=== PATIENT | male | born 1990 ===

== ENCOUNTER 2023-09-10 16:34 | Emergency (ER) | payer OTHER, SELFPAY ==
[2023-09-10] VITALS (9 sets, daily range): BP systolic 124–146; BP diastolic 81–89; PULSE 73–90; RESP 18; TEMP 36.7; O2SAT 95–99; BMI 25.1
--- NOTE | 2023-09-10 17:21 | ED_ITS ---
HPI - Chest Pain General Time Seen by Provider: 17:21 Date Seen: 09/10/23 Chief Complaint: Chest Pain Stated Complaint: PAin and discomfort in heart area Time Seen by Provider: 09/10/23 17:20 Source: patient and RN notes reviewed Mode of arrival: ambulatory Limitations: no limitations History of Present Illness HPI narrative: This 33-year-old male is coming in with chest discomfort. It started about 330 p.m. today, was just walking out of his house. He states it is not really a pain, more of a discomfort. It will be associated with lightheadedness, sense of maybe shortness of breath but not pleuritic pain with breathing. He admits that he has had spells like this for couple years now. He did talk to his primary provider about this once, did reportedly get a stress test of some sort in the past. He is not aware of any elevated cholesterol or hypertension diagnosis. He does admit he does not go to the doctor often. There are 2 grandparents who had heart attacks, both of his grandfathers. He had influenza a couple weeks ago but feels he has recovered. He has had spells of this nature but did not last as long. He reports it is just low level discomfort and has been there since about 330. No associated GI symptoms. He is never had a cardiopulmonary chronic medical illness prior. He states he is not really aware that anything will make it worse or better when he has the symptoms. He notes no swallowing difficulties ever. MD complaint: chest discomfort Prior episodes: Yes Related Data Home Medications Medication Instructions Recorded Confirmed No Known Home Medications 09/10/23 09/10/23 Allergies Allergy/AdvReac Type Severity Reaction Status Date / Time Sulfa (Sulfonamide Allergy Verified 09/10/23 16:48 Antibiotics) Review of Systems Status of ROS Reports: 6 or more systems reviewed and unremarkable except as noted in History and below [facility] Social History Smoking Status: Never smoker How often do you have a drink containing alcohol: 4 or more times a week AUDIT-C Alcohol total score: 4 Non-prescribed substance use: denies use Exam Const Vital Signs, click to edit/add: Vital Signs - 24 hr 09/10/23 17:29 09/10/23 17:33 09/10/23 18:00 Pulse Rate 76 79 Blood Pressure Pulse Oximetry 96 96 98 09/10/23 18:02 09/10/23 18:30 09/10/23 18:32 Pulse Rate 80 75 73 Blood Pressure 126/84 124/81 Pulse Oximetry 98 98 98 33-year-old male is alert, interactive, no apparent distress. Pupils equal round reactive, sclera clear, conjugate gaze come symmetrical facial function. Speech is normal, able speak in complete sentences. Neck is supple, no adenopathy or masses, no thyromegaly masses or nodules. Lungs are clear, good air entry, no wheezing or crackles. CV regular rate and rhythm, no murmur, normal S1-S2, no S3-S4. No reproducible palpable chest wall tenderness. Abdomen is soft, nontender, nondistended, no organomegaly. He has no lower extremity edema, was ambulatory into the ED of his own accord. Documenting provider has reviewed patient's vital signs: yes Course Course ED Course: This is a 33-year-old gentleman presenting with chest discomfort, episodic. Has had what sounds to be some prior workup but I do not have access to those records. He will be monitored on pulse oximetry and cardiac monitoring, will get a portable chest x-ray. He will have serial EKGs. Will get troponin now in reviewed with him likely another troponin 90 minutes from the 1 which will be certainly beyond a 3 hour interval since the start of his symptoms. His symptoms are mild, been present for about 2 years intermittently which makes the likelihood of significant cardiovascular disease much less likely. He could have cardiothoracic issues, respiratory issues, referred GI issues. We have discussed that we will be doing a screening D-dimer, he understands if this is elevated then we will be proceeding with chest CT PE protocol. Reevaluation(s) Time of Reevaluation #1: 18:56 Reevaluation #1: Patient continues to just feel some slight symptoms, reviewed normal labs thus far. He understands that the D-dimer still pending, expect that to be back at any minute. If it is negative, no further chest imaging but if positive he will get a chest CT PE protocol. He will be having a follow-up troponin and EKG at 7:00 p.m.. If these are normal, discharge to home. We did discuss that with the negative enzymes and stable EKGs, he can be reassured that he is not having an active heart attack, no significant ischemia, nothing likely like myocarditis. We did review though that this does not completely rule out underlying heart disease. He has another family member with him, asked about panic attacks. Reviewed with them that I do not think he is having a panic attack but certainly may be suffering from some underlying stress or anxiety. We discussed there is a multitude of things that can be wrong that can cause sym ptoms of this nature but the fact that he has had recurrent symptoms for 2 years would make it less likely that it is something life-threatening. Vital Signs Vital signs: Initial Vital Signs Temperature 98.0 F 09/10/23 16:46 Temperature Source Temporal Artery Scan 09/10/23 16:46 Pulse Rate 89 09/10/23 16:46 Respiratory Rate 18 09/10/23 16:46 Blood Pressure 146/86 H 09/10/23 16:46 Blood Pressure Mean 106 H 09/10/23 16:46 Pulse Oximetry 99 09/10/23 16:46 Oxygen Delivery Method Room Air 09/10/23 16:46 Vital Signs Temperature 98.0 F 09/10/23 16:46 Pulse Rate 89 09/10/23 16:46 Respiratory Rate 18 09/10/23 16:46 Blood Pressure 146/86 H 09/10/23 16:46 Pulse Oximetry 99 09/10/23 16:46 Oxygen Delivery Method Room Air 09/10/23 16:46 Temperature 98.0 F 09/10/23 16:46 Pulse Rate 73 09/10/23 18:32 Respiratory Rate 18 09/10/23 16:46 Blood Pressure 124/81 09/10/23 18:32 Pulse Oximetry 98 09/10/23 18:32 Oxygen Delivery Method Room Air 09/10/23 16:46 MDM - Chest Pain Lab Data Attestation: I reviewed the patient's lab results. Labs: Lab Results 09/10/23 09/10/23 Range/Units 17:38 19:30 WBC 4.08 L (4.50-11.00) K/uL RBC 4.60 (4.30-5.90) m/uL Hgb 14.5 (13.5-17.5) gm/dL Hct 41.7 (37.0-53.0) % MCV 91 (80-100) fL MCH 32 (26-34) pg MCHC 35 (32-36) gm/dL RDW Coeff of Celia 11.7 (11.5-15.5) % Plt Count 213 (140-440) K/uL Neut % (Auto) 40.4 L (42.0-72.0) % Lymph % (Auto) 46.3 H (20-44) % Navarro % (Auto) 5.9 (0.0-11.0) % Eos % (Auto) 6.4 (0.0-7.0) % Baso % (Auto) 1.0 (0.0-3.0) % Neut # (Auto) 1.60 L (1.7-7.0) K/uL Lymph # (Auto) 1.90 (0.90-2.90) K/uL Navarro # (Auto) 0.20 (0.00-0.90) K/UL Eos # (Auto) 0.30 (0.00-0.50) K/uL Baso # (Auto) 0.00 (0.00-0.30) K/uL Abs Immat Gran (auto) 0.00 (0.00-0.30) K/uL Imm/Tot Granulo (auto) 0.0 % D-Dimer Quant (PE/DVT) < 0.27 (0.00-0.50) ug/ml VBG pH 7.386 (7.32-7.43) VBG pCO2 47 (40-50) mmHG VBG pO2 31.4 (25-47) mmHG VBG HCO3 28 (21-28) mmol/L Sodium 140 (135-149) mmol/L Potassium 3.7 (3.6-5.1) mmol/L Chloride 104 (96-114) mmol/L Carbon Dioxide 27 (20-32) mmol/L Anion Gap 9 (7-15) mEq/L BUN 14 (5-24) mg/dL Creatinine 0.9 (0.5-1.5) mg/dL Estimated Creat Clear 129.33 Estimated GFR 116 ml/min Glucose 96 (60-115) mg/dL Lactate 1.0 (0.5-1.9) mmol/L Calcium 9.7 (8.4-10.6) mg/dL Total Bilirubin 1.5 (0.1-1.5) mg/dL AST 34 (12-35) U/L ALT 28 (4-50) U/L Alkaline Phosphatase 65 (40-150) U/L Troponin I < 0.01 L (0.01-0.04) ng/mL C-Reactive Protein < 0.5 L (0.5-1.0) mg/dL NT-Pro-B Natriuret Pep 28 pg/mL Total Protein 7.8 (6.0-8.3) g/dL Albumin 4.9 (3.3-5.0) g/dL Lipase 51 (23-300) U/L POC Troponin I 0.00 L 0.00 L (0.01-0.04) ng/ml Imaging Data Chest x-ray: Attestation: I have reviewed the pertinent imaging results. Radiologist's impression: Patient: MAXIME HAYWOOD Facility:?[facility] Patient ID:?[id number] Site Patient ID:?[id number]. Site :?1990 Study:?XRay Chest 1V PORTABLE-09/10/2023 5:42:35 PM Ordering Physician:LUCY Final Report: INDICATION: Dyspnea. TECHNIQUE: Chest radiographs, 2 views. COMPARISON: None. FINDINGS: Cardiovascular/Mediastinum: Normal heart size. Unremarkable. Lungs: No focal consolidation. Airways: Trachea remains midline. Pleura: No pleural effusions or pneumothorax. Bones: No acute osseous abnormalities. Mild degenerative changes of the acromioclavicular joints. Upper abdomen: Unremarkable. IMPRESSION: No acute cardiopulmonary process. Dictated by Alberto Larose MD @ 09/10/2023 6:07:09 PM (Electronic Signature) ECG Data Attestation: I personally reviewed and interpreted this ECG as follows: (Normal sinus rhythm with sinus arrhythmia, 83 beats per minute. I see no definitive concerning change for ischemia or infarct. QT corrected 434 milliseconds.) ECG interpretation date: 09/10/23 ECG interpretation time: 17:41 Interpretation: Followup EKG timed 7:02 p.m. shows sinus rhythm, 70 beats per minute, no acute ischemia or infarct. QT corrected 423 milliseconds. No significant change. Critical Care Time Critical Care Time Critical Care Time: No Discharge Plan Discharge Clinical Impression: Chest pain Patient Disposition: Home, Self-Care Condition: Stable Instructions: Chest Pain (ED), Noncardiac Chest Pain (ED) Additional Instructions: Do recommend following up in clinic, need to get scheduled with her primary care physician. Can consider seen Dr. Borrero in clinic. Would discuss consideration for further stress testing in further workup of your chest symptoms. Certainly can try Tylenol ibuprofen, [id number] medicines to see if anything alleviates your symptoms. That any point you have worsening chest symptoms, feel that your symptoms are escalating, would recommend re- evaluation. Activity Level: Activity as Tolerated Prescriptions: No Action No Known Home Medications Follow Up/Referrals: Provider,Not a Local [Primary Care Provider] - Stand Alone Forms: [employer]ger[employer] Info Instructions
--- NOTE | 2023-09-10 17:29 | XR_ITS ---
Patient: MAXIME HAYWOOD Facility:?[facility] Patient ID:?[id number] Site Patient ID:?[id number]. Site :?1990 Study:?XRay-Chest 1V PORTABLE-09/10/2023 5:42:35 PM Ordering Physician:LUCY Final Report: INDICATION: Dyspnea. TECHNIQUE: Chest radiographs, 2 views. COMPARISON: None. FINDINGS: Cardiovascular/Mediastinum: Normal heart size. Unremarkable. Lungs: No focal consolidation. Airways: Trachea remains midline. Pleura: No pleural effusions or pneumothorax. Bones: No acute osseous abnormalities. Mild degenerative changes of the acromioclavicular joints. Upper abdomen: Unremarkable. IMPRESSION: No acute cardiopulmonary process. Dictated by Alberto Larose MD @ 09/10/2023 6:07:09 PM Signed by:?Alberto Larose MD @09/10/2023 6:07:09 PM (Electronic Signature)
[2023-09-10 17:44] LABS: HCO3 VBG 28 mmol/L (21-28); PCO2 VBG 47 mmHG (40-50); PO2 VBG 31.4 mmHG (25-47); pH VBG 7.386 (7.32-7.43)
[2023-09-10 17:47] LABS: Eosinophils Percent Auto 6.4 % (0.0-7.0); Hematocrit 41.7 % (37.0-53.0); Hemoglobin* 14.5 gm/dL (13.5-17.5); Lymphocytes Percent Auto 46.3 % (20-44); Mean Corpuscular HGB Conc 35 gm/dL (32-36); Mean Corpuscular Hemoglobin 32 pg (26-34); Mean Corpuscular Volume 91 fL (80-100); Monocytes Percent Auto 5.9 % (0.0-11.0); Neutrophils Percent Auto 40.4 % (42.0-72.0); Platelet Count* 213 K/uL (140-440); RDW Coefficient of Variation % 11.7 % (11.5-15.5); White Blood Count* 4.08 K/uL (4.50-11.00)
[2023-09-10 17:59] LABS: Albumin* 4.9 g/dL (3.3-5.0); Chloride* 104 mmol/L (96-114); Sodium* 140 mmol/L (135-149)
[2023-09-10 18:00] LABS: Potassium* 3.7 mmol/L (3.6-5.1)
[2023-09-10 18:02] LABS: Alkaline Phosphatase* 65 U/L (40-150); Anion Gap 9 mEq/L (7-15); Aspartate Amino Transferase* 34 U/L (12-35); Bilirubin Total* 1.5 mg/dL (0.1-1.5); Blood Urea Nitrogen* 14 mg/dL (5-24); Carbon Dioxide* 27 mmol/L (20-32); Creatinine* 0.9 mg/dL (0.5-1.5); Est. Creatinine Clearance* 129.33; Estimated Glomerular Filt Rate 116 ml/min; Total Protein* 7.8 g/dL (6.0-8.3)
[2023-09-10 18:03] LABS: Alanine Aminotransferase* 28 U/L (4-50); Calcium* 9.7 mg/dL (8.4-10.6); Glucose* 96 mg/dL (60-115); Lipase* 51 U/L (23-300)
[2023-09-10 18:04] LABS: Slide Review Reflex No
[2023-09-10 18:13] LABS: C Reactive Protein* < 0.5 mg/dL (0.5-1.0); NT Pro B Type NatriureticPept* 28 pg/mL
[2023-09-10 18:16] LABS: Troponin I* < 0.01 ng/mL (0.01-0.04)
[2023-09-10 18:50] LABS: D Dimer Quantitative* < 0.27 ug/ml (0.00-0.50)
== END 2023-09-10 20:19 | disposition home or self-care (01) ==
PROVIDERS: Family Medicine; Emergency Provider Emergency Medicine Emergency Medical Services
DX: R07.9 Chest pain, unspecified (principal)
CPT/HCPCS: 36415; 71045; 80053; 82803; 83605; 83690; 83880; 84484; 85025; 85379; 86140; 93005; 94761; 99284; 99285